=== PATIENT | male | born 1970 | race Caucasian/White ===

== ENCOUNTER 2017-12-04 06:36 | Day surgery (SDC) | payer OTHER ==
[~2017-12-04] VITALS: Ht 175.3 cm; Wt 98.9 kg
[~2017-12-04 06:36] MED LIST: BUPR150T9 PO
[2017-12-04] MEDS: LACTATED RINGERS 1,000 ML IV PRN ×2 (07:00→08:48)
[2017-12-04] MEDS ORDERED: GLUC1CAP37 PO (07:26)
[2017-12-04] MEDS ORDERED: NICO-533 TD (07:26)
[2017-12-04] MEDS ORDERED: [UNRECOGNIZED DRUG - OTHER] PO (07:26)
[2017-12-04] MEDS ORDERED: OMEP20TA7 PO (07:26)
[2017-12-04] MEDS ORDERED: LEVO500T80 PO (07:26)
[2017-12-04] MEDS ORDERED: MUPIROCIN 2% OINT 22 GM (BACTROBAN) TUBE ONE (07:50)
[2017-12-04] MEDS ORDERED: LIDOCAINE/EPI 1%-1:200,000 (XYLOCAINE) 10 ML VIAL ONE (07:52)
[2017-12-04] MEDS ORDERED: MIDAZOLAM 2 MG/2 ML (VERSED) VIAL ONE (07:53)
[2017-12-04] MEDS ORDERED: SEVOFLURANE (ULTANE) 15 ML INHAL SOLN ONE ×5 (07:53→08:53)
[2017-12-04] MEDS ORDERED: DEXAMETHASONE 10 MG/ML (DECADRON) 1 ML VIAL ONE (07:53)
[2017-12-04] MEDS ORDERED: LIDOCAINE PF 2% 5 ML (XYLOCAINE) VIAL ONE (07:53)
[2017-12-04] MEDS ORDERED: ROCURONIUM 10 MG/ML 5 ML SYRINGE IV ONE (07:53)
[2017-12-04] MEDS ORDERED: fentaNYL INJECTION 100 MCG/2 ML AMP ONE (07:53)
[2017-12-04] MEDS ORDERED: proPOfol 200 MG/20 ML (DIPRIVAN) VIAL IV ONE (07:53)
[2017-12-04] MEDS ORDERED: ONDANSETRON 4 MG/2 ML (SDV) Z0FRAN ONE (07:53)
[2017-12-04] MEDS ORDERED: GLYCOPYRROLATE 0.2 MG/ML (ROBINUL) 2 ML VIAL ONE (07:55)
[2017-12-04] MEDS ORDERED: NEOSTIGMINE 1 MG/ML 5 ML SYRINGE ONE (07:55)
--- NOTE | 2017-12-04 08:00 | Progress Note-Pre Operative ---
Pre-Operative Progress Note H&P Reviewed The H&P was reviewed, patient examined and no changes noted. Date Seen by Provider: December 04, 2017 Time Seen by Provider: 07:30 Date H&P Reviewed: December 04, 2017 Time H&P Reviewed: 07:30 Pre-Operative Diagnosis: Excision of Right Posterior Neck Mass DEAN DUBOIS MD December 04, 2017 8:00 am
[2017-12-04 08:49] VITALS: BP 126/71
--- NOTE | 2017-12-04 09:09 | Progress Note-Post Operative ---
Post-Operative Progess Note Surgeon (s)/Machine Rope Maker (s) Surgeon DEAN DUBOIS MD Machine Rope Maker n/a Pre-Operative Diagnosis Excision of Right Posterior Neck Mass Post-Operative Diagnosis same Post-Op Procedure Note Date of Procedure: December 04, 2017 Name of Procedure Performed: Excision of Multiple RIght Lymph Nodes Description & Findings Description and Findings: n/a Anesthesia Type get Estimated Blood Loss minimal Packing none. Specimen(s) collected/removed right lymph [id number] lymph node awaiting further tests DEAN DUBOIS MD December 04, 2017 9:09 am
[2017-12-04] MEDS ORDERED: HYDROcodone/APAP 5 MG/325 MG (LORTAB) TAB PO PRN (09:15)
[2017-12-04] MEDS ORDERED: ACETAMINOPHEN 325 MG TABLET/CAPLET (TYLENOL) PO PRN (09:15)
[2017-12-04] MEDS ORDERED: MEPERIDINE (DEMEROL) INJ 50 MG/ML IVP PRN (09:30)
[2017-12-04] MEDS ORDERED: HYDROmorphone 2 MG/ML VIAL (DILAUDID) IVP PRN (09:30)
[2017-12-04] MEDS ORDERED: fentaNYL INJECTION 100 MCG/2 ML AMP IVP PRN (09:30)
[2017-12-04] MEDS ORDERED: ONDANSETRON 4 MG/2 ML (SDV) Z0FRAN IVP PRN (09:30)
[2017-12-04 10:10] VITALS: BP 112/55
[2017-12-04 10:40] VITALS: BP 120/76
[2017-12-04] MEDS ORDERED: MUPI22OI2 TP (10:47)
[2017-12-04] MEDS ORDERED: HYDR-3812 PO (10:47)
--- NOTE | 2017-12-04 10:54 | Anesthesia-General Post-Op ---
General Patient Condition Mental Status/LOC: Same as Preop Cardiovascular: Satisfactory Nausea/Vomiting: Absent Respiratory: Satisfactory Pain: Controlled Complications: Absent Post Op Complications Complications None Follow Up Care/Instructions Patient Instructions None needed. Anesthesia/Patient Condition Patient Condition Patient is doing well, no complaints, stable vital signs, no apparent adverse anesthesia problems. No complications reported per nursing. TRACEY CRESPO CRNA December 04, 2017 10:54
[2017-12-04 11:10] VITALS: BP 118/67
[2017-12-04 11:27] VITALS: BP 118/67
== END 2017-12-04 11:27 | disposition home or self-care (01) ==
LOC: SDC 06:36
PROVIDERS: ATTEND Otolaryngology Otolaryngology/Facial Plastic Surgery
DX: I89.8 Other specified noninfective disorders of lymphatic vessels and lymph nodes (principal); D17.0 Benign lipomatous neoplasm of skin and subcutaneous tissue of head, face and neck; F17.210 Nicotine dependence, cigarettes, uncomplicated
CPT/HCPCS: 87081; 88304; 88331